=== PATIENT | female | born 1995 | race Two or more races ===

== ENCOUNTER 2023-10-05 22:54 | Emergency (ER) | payer SELFPAY ==
[~2023-10-05] VITALS: Ht 152.4 cm; Wt 84.1 kg
[2023-10-06] MEDS ORDERED: IBUP-1456 PO (03:28)
[2023-10-06] MEDS ORDERED: KETOROLAC TROMETH 60MG/2ML VIAL IM ONE (03:30)
[2023-10-06 03:50] VITALS: BP 147/93; PULSE 91; RESP 15; TEMP 98.3; O2SAT 97
== END 2023-10-06 03:55 | disposition home or self-care (01) ==
LOC: ER 22:54
DX: G43.909 Migraine, unspecified, not intractable, without status migrainosus (principal)
CPT/HCPCS: 81025; 96372; 99283; J1885